=== PATIENT | male | born 1995 | race Two or more races ===

== ENCOUNTER 2017-03-30 21:01 | Emergency (ER) | payer SELFPAY | END 2017-03-30 23:00 | disposition home or self-care (01) | LOC: CED 21:01 | DX: T22.151A Burn of first degree of right shoulder, initial encounter (principal); T26.01XA Burn of right eyelid and periocular area, initial encounter; Z23 Encounter for immunization; X12.XXXA Contact with other hot fluids, initial encounter; Y92.009 Unspecified place in unspecified non-institutional (private) residence as the place of occurrence of the external cause | CPT/HCPCS: 90471; 90715; 99283 ==